=== PATIENT | female | born 1950 | race Caucasian/White ===

== ENCOUNTER 2018-03-23 06:50 | Day surgery (SDC) | payer BC ==
[~2018-03-23 06:50] MED LIST: Lactated Ringers 1,000 ML IV SCH
[2018-03-23] MEDS ORDERED: Propofol 200 MG/20 ML SDV IV ONE (06:51)
[2018-03-23] MEDS ORDERED: Lidocaine 1% 30 ML SDV INJECT ONE (06:51)
--- NOTE | 2018-03-23 08:50 | PCM.HP ---
H&P History of Present Illness - General Date of Service: 03/23/18 Admit Problem/Dx: Admission Diagnosis/Problem Admission Diagnosis/Problem Colonoscopy Source of Information: Patient, Old Records History Limitations: Reports: No Limitations - History of Present Illness Initial Comments - Free Text/Narative: Here for screening colonoscopy for FH Colon Ca, last one almost 6 yrs ago - Related Data Allergies/Adverse Reactions: Allergies Allergy/AdvReac Type Severity Reaction Status Date / Time ciprofloxacin [From Cipro] Allergy Nausea and Verified 03/23/18 07:17 Vomiting lisinopril Allergy Cough Verified 03/23/18 07:17 losartan Allergy Cough Verified 03/23/18 07:17 perfume Allergy Headache Verified 03/23/18 07:17 Home Medications: Home Meds Calcium Carb/Vit D3/Minerals [Calcium 600+D Plus Minerals] 1 each PO DAILY 01/22 [History] Meloxicam 15 mg PO DAILY #30 tablet 01/23/16 [Rx] Metoprolol Succinate 50 mg PO DAILY 01/23/16 [History] Mometasone Furoate [Asmanex] 1 puff INH DAILY 01/23/16 [History] Omeprazole 20 mg PO DAILY 01/23/16 [History] Raloxifene [Evista] 60 mg PO DAILY 01/23/16 [History] Ascorbic Acid [Vitamin C] 1,000 mg PO DAILY 03/22/18 [History] Fluticasone/Salmeterol [Advair 250-50 Diskus] 1 puff IH Q12H 03/22/18 [History] Lansoprazole [Prevacid] 30 mg PO DAILY 03/22/18 [History] Levothyroxine 125 mcg PO DAILY 03/22/18 [History] metFORMIN [Glucophage XR] 500 mg PO BIDMEALS 03/22/18 [History] Past Medical History HEENT History: Reports: Impaired Vision Cardiovascular History: Reports: Hypertension Respiratory History: Reports: Asthma, Bronchitis, Recurrent, COPD Gastrointestinal History: Reports: Diverticulosis, GERD Other Gastrointestinal History: [employer] History: Reports: Musculoskeletal History: Reports: Fracture Endocrine/Metabolic History: Reports: Diabetes, Type II, Hypothyroidism, Obesity /BMI 30+ - Past Surgical History GI Surgical History: Reports: Appendectomy, Colonoscopy, EGD, Hernia Repair/ Other Other GI Surgeries/Procedures: INCISIONAL HERNIORRAPHY Female Surgical History: Reports: Breast Biopsy, Section, D&C, Tubal Ligation, Other (See Below) Other Female Surgeries/Procedures: URETHROPEXY WITH MESH, RIGHT BREAST BX Musculoskeletal Surgical History: Reports: ORIF Other Musculoskeletal Surgeries/Procedures:: ORIF RIGHT FOREARM Social & Family History - Family History Family Medical History: Noncontributory - Tobacco Use Smoking Status *Q: Former Smoker - Caffeine Use Caffeine Use: Reports: Energy Drinks, Soda, Tea - Recreational Drug Use Recreational Drug Use: No H&P Review of Systems - Review of Systems: Review Of Systems: ROS reveals no pertinent complaints other than HPI. Exam - Exam Exam: See Below - Vital Signs Vital Signs: Last Vital Signs Temp 208.9 F H 03/23/18 08:43 Pulse 77 03/23/18 08:43 Resp 16 03/23/18 08:43 BP 128/53 L 03/23/18 08:43 Pulse Ox 98 03/23/18 08:43 Weight: 95.254 kg - Exam General: Alert, Oriented Lungs: Clear to Auscultation, Normal Respiratory Effort Cardiovascular: Regular Rate, Regular Rhythm GI/Abdominal Exam: Soft, Non-Tender - Patient Data Lab Results Last 24 hrs: Laboratory Results - last 24 hr 03/23/18 Range/Units 07:21 POC Glucose 118 H (80-116) mg/dL Problem List Initiated/Reviewed/Updated: Yes Orders Last 24hrs: Active Orders 24 hr Category Date Time Status Patient Status [ADT] Routine ADT 03/23/18 06:45 Ordered Blood Glucose Check, Bedside [RC] ONETIME Care 03/23/18 06:45 Active Patient to Empty Bladder [RC] ASDIRECTED Care 03/23/18 06:45 Active Verify Patient Consent Obtain [RC] ASDIRECTED Care 03/23/18 06:45 Active Nothing Per Oral Diet [DIET] Diet 03/23/18 Breakfast Ordered Lactated Ringers [Ringers, Lactated] 1,000 ml Med 03/23/18 06:45 Active IV ASDIRECTED Peripheral IV Insertion Adult [OM.PC] Routine Oth 03/23/18 06:45 Ordered Resuscitation Status Routine Resus Stat 03/22/18 11:02 Ordered Medication Orders Lactated Ringer's (Ringers, Lactated) 1,000 mls @ 125 mls/hr IV ASDIRECTED [place] Last Admin: 03/23/18 07:28 Dose: 125 mls/hr Assessment/Plan Comment:: FH Colon Ca Ok to proceed with colonoscopy; risks and complications reviewed, consent obtained
--- NOTE | 2018-03-23 08:51 | PCM.OPNOTE ---
- General Post-Op/Procedure Note Date of Surgery/Procedure: 03/23/18 Operative Procedure(s): Colonoscopy Findings: Sig tics Pre Op Diagnosis: FH Colon Ca Post-Op Diagnosis: Same Anesthesia Technique: MAC Primary Surgeon: Chago Leach Complications: None Condition: Good
[2018-03-23 10:00] VITALS: BP 130/65
--- NOTE | 2018-03-24 07:58 | OR ---
DATE OF OPERATION: 03/23/2018 SURGEON: Chago Leach MD PREOPERATIVE DIAGNOSIS: Family history of colon cancer. POSTOPERATIVE DIAGNOSIS: Sigmoid diverticulosis. PROCEDURE: Colonoscopy. ANESTHESIA: IV sedation. DESCRIPTION OF PROCEDURE: The patient was brought to the procedure room, where she was placed on her left side and IV sedation administered. Digital rectal exam was performed, which was normal. Colonoscope was inserted and advanced through a fairly difficult tortuous sigmoid colon with multiple diverticula. Once I got through the sigmoid colon, it was advanced to the level of the cecum without difficulty. Cecal position was confirmed by identifying the appendiceal lumen and ileocecal valve. Prep was good and surfaces were well visualized. Upon withdrawing the scope, the ascending, transverse, and descending colon were normal in appearance. Sigmoid colon had multiple diverticula. Rectum was normal and retroflexion was normal. Air was removed and the scope withdrawn. The patient tolerated the procedure well and returned to recovery in stable condition. Recommend routine colon screening again in 5 years. /[id number]/DEBORAH
== END 2018-03-23 09:50 | disposition home or self-care (01) ==
LOC: FB.SDS 06:50
PROVIDERS: ATTEND Surgery
DX: Z12.11 Encounter for screening for malignant neoplasm of colon (principal); K57.30 Diverticulosis of large intestine without perforation or abscess without bleeding; I10 Essential (primary) hypertension; E11.9 Type 2 diabetes mellitus without complications; J44.9 Chronic obstructive pulmonary disease, unspecified; E66.01 Morbid (severe) obesity due to excess calories; Z68.39 Body mass index [BMI] 39.0-39.9, adult; E03.9 Hypothyroidism, unspecified; K21.9 Gastro-esophageal reflux disease without esophagitis; Z87.891 Personal history of nicotine dependence; Z79.899 Other long term (current) drug therapy; Z79.84 Long term (current) use of oral hypoglycemic drugs; Z88.8 Allergy status to other drugs, medicaments and biological substances; Z80.0 Family history of malignant neoplasm of digestive organs
CPT/HCPCS: 45378; 82962; J2704; J7120

== ENCOUNTER 2021-08-25 10:14 | Emergency (ER) | payer BC ==
[2021-08-25] MEDS ORDERED: hydrOXYzine HCl 50 MG/ML SDV IM STA (10:46)
[2021-08-25] MEDS ORDERED: methylPREDNISolone Sodium Succinate 125 MG/2 ML SDV IM STA (10:46)
[2021-08-25 13:19] VITALS: BP 157/97; PULSE 72
== END 2021-08-25 11:31 | disposition home or self-care (01) ==
LOC: FB.ED 10:14
DX: L23.9 Allergic contact dermatitis, unspecified cause (principal); J44.9 Chronic obstructive pulmonary disease, unspecified; I10 Essential (primary) hypertension; E66.9 Obesity, unspecified; Z68.39 Body mass index [BMI] 39.0-39.9, adult; Z88.1 Allergy status to other antibiotic agents; Z88.8 Allergy status to other drugs, medicaments and biological substances; Z91.048 Other nonmedicinal substance allergy status; Z79.899 Other long term (current) drug therapy; Z79.84 Long term (current) use of oral hypoglycemic drugs; Z90.49 Acquired absence of other specified parts of digestive tract
CPT/HCPCS: 96372; 99282; J2930; J3410